=== PATIENT | female | born 1975 ===

== ENCOUNTER 2017-07-10 12:04 | Emergency (ER) | payer OTHER ==
[2017-07-10 12:10] VITALS: O2SAT 100
--- NOTE | 2017-07-10 13:03 | C.PDOC ---
History Of Present Illness Patient is a 41 year old female presents to ED for evaluation of fever, and generalized body and joint pain for the last 10 days. Patient reports being seen at [facility] for similar symptoms with negative work up. Notes taking Fioricet 3 -4 times a day without any relief. Pt states she had a temp of 102 almost every day for the last 10 days after returning from [facility]. Pt expresses concern for dengue virus, since it is endemic in [facility]. Notes taking Fioricet this morning for fever. Also complains of mild headache. Otherwise, denies any cough , urinary symptoms, bowel/bladder incontinence, nausea, vomiting, abdominal pain , dizziness, change in vision, or any other associated symptoms at this time. Notes having PPD placed on right forearm 2 days ago by immigration. she has been treated with itraconazole for the past 4 months for onychomycosis. Time Seen by Provider: 07/10/17 12:24 Chief Complaint (Nursing): Flu-like Symptoms History Per: Patient History/Exam Limitations: no limitations Onset/Duration Of Symptoms: Days (10) Current Symptoms Are (Timing): Still Present Location Of Pain: None Sick Contacts (Context): None Recent travel outside of the [place]: Yes Additional History Per: Patient Past Medical History Reviewed: Historical Data, Nursing Documentation, Vital Signs Vital Signs: Last Vital Signs Temp 99.6 F 07/10/17 13:51 Pulse 98 H 07/10/17 13:51 Resp 19 07/10/17 13:51 BP 153/87 H 07/10/17 13:51 Pulse Ox 100 07/10/17 13:51 - Medical History PMH: Hypothyroidism Family History: States: Unknown Family Hx - Social History Hx Alcohol Use: No Hx Substance Use: No - Immunization History Hx Tetanus Toxoid Vaccination: No Hx Influenza Vaccination: No Hx Pneumococcal Vaccination: No Review Of Systems Except As Marked, All Systems Reviewed And Found Negative. Constitutional: Positive for: Fever, Other (myalgia) Eyes: Negative for: Vision Change Cardiovascular: Negative for: Chest Pain, Palpitations Respiratory: Negative for: Cough, Shortness of Breath Gastrointestinal: Negative for: Nausea, Vomiting, Abdominal Pain Genitourinary: Negative for: Dysuria, Frequency, Hematuria Musculoskeletal: Negative for: Back Pain Skin: Negative for: Rash Neurological: Positive for: Headache (mild). Negative for: Weakness, Numbness, Dizziness Physical Exam - Physical Exam Appears: Non-toxic, No Acute Distress Skin: Normal Color, Warm, Dry, No Rash Head: Atraumatic, Normacephalic Eye(s): bilateral: Normal Inspection Oral Mucosa: Moist Neck: Normal ROM, Supple Cardiovascular: Rhythm Regular, No Murmur Respiratory: Normal Breath Sounds, No Rales, No Rhonchi, No Wheezing Gastrointestinal/Abdominal: Soft, No Tenderness Extremity: Normal ROM (FROM at all joints), No Tenderness, No Pedal Edema, Capillary Refill (<2 sec.), No Deformity, No Swelling (no swelling of extremities) Extremity: Bilateral: Atraumatic, Normal Color And Temperature, Normal ROM Neurological/Psych: Oriented x3, Normal Speech, Normal Motor, Normal Sensation Gait: Steady ED Course And Treatment - Laboratory Results Result Diagrams: 07/10/17 13:03 07/10/17 13:03 Lab Interpretation: Abnormal Interpretation Of Abnormal: Elevated LFTs with normal bili. O2 Sat by Pulse Oximetry: 100 (RA) Pulse Ox Interpretation: Normal Progress Note: Plan: Blood work, UA, Dengue fever AB Reevaluation Time: 14:12 Reassessment Condition: Unchanged (Patient still with generalized myalgia and arthralgia but no acute distress.) Disposition Counseled Patient/Family Regarding: Studies Performed, Diagnosis, Need For Followup, Rx Given - Disposition Referrals: [facility] [Outside] Disposition: HOME/ ROUTINE Disposition Time: 14:13 Condition: STABLE Additional Instructions: Avoid Tylenol or Aspirin or Anti-inflammatory type drugs. Encourage plenty of fluids and rest. Follow up in the clinic for repeat evaluation of your liver function tests. Prescriptions: traMADol [Ultram] 50 mg PO TID PRN #14 tab PRN Reason: Pain, Severe (8-10) Instructions: Viral Syndrome (ED) Forms: [employer] (Taiwanese) Print Language: ICELANDIC - Clinical Impression Clinical Impression: Viral illness, Arthralgia, Myalgia - Scribe Statement The provider has reviewed the documentation as recorded by the Maura Weeks All medical record entries made by the Sanchezibe were at my direction and personally dictated by me. I have reviewed the chart and agree that the record accurately reflects my personal performance of the history, physical exam, medical decision making, and the department course for this patient. I have also personally directed, reviewed, and agree with the discharge instructions and disposition.
[2017-07-10 13:08] LABS: BASO # 0.1 K/uL (0.0-0.2); EOS # 0.1 K/uL (0.0-0.7); EOS % 1.1 % (0.0-4.0); HEMATOCRIT 38.3 % (34.0-47.0); LYMPH # 1.5 K/uL (1.0-4.3); LYMPH % 19.6 % (20.0-40.0); MEAN CELL VOLUME 83.9 fL (81.0-99.0); MEAN CORPUSCULAR HEMOGLOBIN 28.7 pg (27.0-31.0); MEAN CORPUSCULAR HGB CONC 34.2 g/dL (33.0-37.0); MEAN PLATELET VOLUME 8.3 fL (7.2-11.7); MONO # 0.8 K/uL (0.0-0.8); RED CELL DISTRIBUTION WIDTH 13.2 % (11.5-14.5); WHITE BLOOD COUNT 7.9 K/uL (4.8-10.8)
[2017-07-10 13:10] LABS: RBC URINE 8 /hpf (0-3); URINE BILIRUBIN NEGATIVE (NEGATIVE); URINE BLOOD 1+ (NEGATIVE); URINE COLOR Yellow (YELLOW); URINE GLUCOSE (UA) NORMAL (Normal); URINE KETONE NEGATIVE (NEGATIVE); URINE LEUKOCYTE ESTERASE NEG Leu/uL (Negative); URINE PROTEIN NEGATIVE (NEGATIVE); URINE UROBILINOGEN NORMAL mg/dL (0.2-1.0); WBC URINE < 1 /hpf (0-5)
[2017-07-10 13:22] LABS: CHLORIDE 101 mmol/L (98-107); SODIUM 140 mmol/L (132-148)
[2017-07-10 13:25] LABS: ALB/GLOB RATIO 1.1 (1.0-2.1); ALKALINE PHOSPHATASE 230 U/L (38-126); ALT/SGPT 243 U/L (9-52); AST/SGOT 177 U/L (14-36); BILIRUBIN,TOTAL 0.5 mg/dL (0.2-1.3); BLOOD UREA NITROGEN 10 mg/dL (7-17); CARBON DIOXIDE 25 mmol/L (22-30); GFR AFRICAN-AMERICAN > 60; GLUCOSE,RANDOM 89 mg/dL (65-105); TOTAL PROTEIN 7.7 g/dL (6.3-8.3)
[2017-07-10 13:52] VITALS: BP 153/87; PULSE 98; RESP 19; TEMP 99.6
[2017-07-13 22:13] LABS: DENGUE FEVER AB (IGG) 5.65; DENGUE FEVER AB (IGM) 0.15
== END 2017-07-10 14:27 | disposition home or self-care (01) ==
LOC: C.ER 12:04
DX: B34.9 Viral infection, unspecified (principal); M25.50 Pain in unspecified joint; M79.1 Myalgia